=== PATIENT | female | born 1970 | race African-American/Black ===

== ENCOUNTER 2017-06-15 11:58 | Emergency (ER) | payer MEDICAID ==
[~2017-06-15] VITALS: Ht 157.5 cm; Wt 71.0 kg
[2017-06-15] MEDS ORDERED: HYDR12.529 PO (12:19)
[2017-06-15] MEDS ORDERED: ACETAMINOPHEN 325MG TABLET PO STA (17:54)
[2017-06-15 18:19] LABS: HCG SCREEN NEGATIVE
[2017-06-15 18:20] LABS: HEMATOCRIT. 38.8 % (36.0-48.0); HEMOGLOBIN. 13.2 g/dL (12.0-16.0); LYMPHOCYTES % 48.2 % (20.0-50.0); MEAN CORPUSCULAR HEMOGLOBIN 28.8 pg (28.0-32.0); MEAN CORPUSCULAR VOLUME 84.8 fL (81.0-99.0); MEAN PLATELET VOLUME 8.8 fl (7.4-10.4); MONOCYTES % 8.4 % (2.0-8.0); NEUTROPHILS % 39.4 % (40.0-76.0); PLATELET 368 x1000/uL (130-400); RED BLOOD CELL COUNT 4.58 mill/uL (4.2-5.4)
[2017-06-15 18:23] LABS: INR 1.1; PROTHROMBIN TIME 11.2 sec (9.4-11.6)
[2017-06-15 18:24] LABS: CARBON DIOXIDE 31 mEq/L (21-32); CHLORIDE 99 mEq/L (98-107)
[2017-06-15] MEDS ORDERED: POTASSIUM CHLORIDE 20MEQ TABLET SR PO ONE (18:45)
[2017-06-15 19:54] LABS: CLARITY URINE CLEAR (CLEAR); COLOR URINE YELLOW (YELLOW); GLUCOSE URINE NEGATIVE (NEGATIVE); KETONES URINE NEGATIVE (NEGATIVE); LEUKOCYTE ESTERASE URINE TRACE (NEGATIVE); NITRITE URINE NEGATIVE (NEGATIVE); OCCULT BLOOD URINE NEGATIVE (NEGATIVE); PH URINE 6.5 (4.5-8.0); PROTEIN URINE NEGATIVE (NEGATIVE); SPECIFIC GRAVITY URINE 1.008 (1.005-1.030); UROBILINOGEN URINE 0.2 E.U./dL (0.2-1.0)
[2017-06-15 20:32] LABS: *AMPHETAMINES SCREEN URINE NEGATIVE (NEGATIVE); *BARBITURATES SCREEN URINE NEGATIVE (NEGATIVE); *BENZODIAZEPINES SCREEN URINE NEGATIVE (NEGATIVE); *COCAINE SCREEN URINE NEGATIVE (NEGATIVE); CANNABINOID URINE SCREEN NEGATIVE (NEGATIVE); METHADONE URINE SCREEN NEGATIVE (NEGATIVE); OPIATES URINE SCREEN NEGATIVE (NEGATIVE); PHENCYCLIDINE URINE SCREEN NEGATIVE (NEGATIVE)
[2017-06-15 21:07] VITALS: BP 140/77
== END 2017-06-15 21:10 | disposition home or self-care (01) ==
LOC: ER 11:58
DX: R51 Headache (principal); I10 Essential (primary) hypertension; E87.6 Hypokalemia; R63.4 Abnormal weight loss; R63.0 Anorexia
CPT/HCPCS: 36415; 80053; 80305; 81001; 83690; 84703; 85025; 85610; 99284

== ENCOUNTER 2022-05-10 14:20 | Emergency (ER) | payer OTHER, MEDICAID ==
[~2022-05-10] VITALS: Ht 157.5 cm; Wt 68.0 kg
[~2022-05-10 14:20] MED LIST: HYDR12.529 PO
[2022-05-10] MEDS ORDERED: CEPH500C2 MT (15:56)
[2022-05-10] MEDS ORDERED: IBUP-2029 MT (15:56)
[2022-05-10 16:14] VITALS: BP 136/73
== END 2022-05-10 17:17 | disposition home or self-care (01) ==
LOC: ER 14:20
DX: S60.461A Insect bite (nonvenomous) of left index finger, initial encounter (principal); W57.XXXA Bitten or stung by nonvenomous insect and other nonvenomous arthropods, initial encounter; Y93.89 Activity, other specified; Y92.89 Other specified places as the place of occurrence of the external cause; Y99.8 Other external cause status; I10 Essential (primary) hypertension
CPT/HCPCS: 99283